=== PATIENT | female | born 1935 | race Caucasian/White ===

== ENCOUNTER 2025-09-04 11:49 | Emergency (ER) | payer MEDICARE | END 2025-09-04 12:26 | disposition home or self-care (01) | LOC: NAV ERS 11:49 | DX: S80.12XA Contusion of left lower leg, initial encounter (principal); E03.9 Hypothyroidism, unspecified; E78.5 Hyperlipidemia, unspecified; K21.9 Gastro-esophageal reflux disease without esophagitis; I48.91 Unspecified atrial fibrillation; X58.XXXA Exposure to other specified factors, initial encounter; Z95.0 Presence of cardiac pacemaker; Z79.899 Other long term (current) drug therapy; Z79.82 Long term (current) use of aspirin; Z79.01 Long term (current) use of anticoagulants | CPT/HCPCS: 99283 ==